=== PATIENT | female | born 1985 | race Caucasian/White ===

== ENCOUNTER 2019-12-22 09:36 | Outpatient (CLI) | payer MEDICAID | END 2019-12-22 09:37 | disposition home or self-care (01) | LOC: LAB 09:36 | PROVIDERS: ATTEND Physician Assistant Medical | DX: Z01.812 Encounter for preprocedural laboratory examination (principal); Z20.828 Contact with and (suspected) exposure to other viral communicable diseases ==

== ENCOUNTER 2020-06-24 10:32 | Emergency (ER) | payer MEDICAID ==
--- OUTSIDE RECORDS SUMMARY | 2020-06-24 11:20 | EXTERNAL MEDICAL SUMMARY RPT | Continuity of Care Document ---
:1985 Demographics Phone Unavailable Preferred Language Unknown Marital Status Unknown Cheondoism Affiliation Unknown Race Unknown Ethnic Group Unknown Author Organization [place] Address [address] [id number] Phone Social History date description facility [id number]
[2020-06-24 11:25] LABS: BASOPHILS % (AUTO) 0.8 %; EOSINOPHILS # (AUTO) 0.1 10^3/uL (0.0-0.7); EOSINOPHILS % (AUTO) 1.2 %; HCT - HEMATOCRIT 41.3 % (37.0-47.0); HGB - HEMOGLOBIN 13.5 g/dL (12.0-16.0); LYMPHOCYTES # (AUTO) 1.8 10^3/uL (1.5-3.5); LYMPHOCYTES % (AUTO) 34.8 %; MEAN CORPUSCULAR HEMOGLOBIN 30.5 pg (27.0-31.0); MEAN CORPUSCULAR HGB CONC 32.7 g/dL (32.0-36.0); MEAN CORPUSCULAR VOLUME 93.4 fL (81.0-99.0); MEAN PLATELET VOLUME 8.9 fL (7.9-10.8); MONOCYTES # (AUTO) 0.4 10^3/uL (0.0-1.0); MONOCYTES % (AUTO) 7.1 %; NEUTROPHILS # (AUTO) 2.8 10^3/uL (1.5-6.6); NEUTROPHILS % (AUTO) 55.9 %; PLT - PLATELET COUNT 252 10^3/uL (130-450); RED BLOOD COUNT 4.42 10^6/uL (4.20-5.40); RED CELL DISTRIBUTION WIDTH 14.7 % (12.0-15.0); WHITE BLOOD COUNT 5.1 x10^3/uL (4.8-10.8)
[2020-06-24 11:38] LABS: ALBUMIN 4.8 g/dL (3.2-5.5); ALBUMIN/GLOBULIN RATIO 1.8 (1.0-2.2); BILIRUBIN,TOTAL 0.6 mg/dL (0.2-1.0); CALCIUM 9.6 mg/dL (8.5-10.3); CREATININE 0.7 mg/dL (0.4-1.0); POTASSIUM 4.1 mmol/L (3.5-5.0); TOTAL PROTEIN 7.5 g/dL (6.7-8.2)
[2020-06-24 12:24] LABS: BILIRUBIN,URINE NEGATIVE (NEGATIVE); GLUCOSE, URINE (UA) NEGATIVE (NEGATIVE); KETONES,URINE (UA) NEGATIVE (NEGATIVE); LEUKOCYTE ESTERASE, URINE NEGATIVE (NEGATIVE); NITRITE,URINE NEGATIVE (NEGATIVE); OCCULT BLOOD,URINE SMALL (NEGATIVE); PROTEIN,URINE NEGATIVE (NEGATIVE); UROBILINOGEN,URINE 0.2 (NORMAL) E.U./dL (NORMAL)
[2020-06-24 12:31] LABS: BACTERIA,URINE Rare /HPF (None Seen); CLARITY,URINE CLEAR (CLEAR); HCG UR QUAL NEGATIVE; RBC,URINE 0-5 /HPF (0-5); SQUAMOUS EPITHELIAL CELL,UR RARE Squamous (<= Few); WBC,URINE 0-3 /HPF (0-5)
[2020-06-24] MEDS ORDERED: ACETAMINOPHEN 325 MG TABLET PO STA (15:49)
[2020-06-24 16:19] VITALS: BP 121/81
--- NOTE | 2020-06-24 16:37 | ED Physician Documentation ---
History of Present Illness - Stated complaint Stated Complaint: ABD PX/NAUSEA - Chief complaint Chief Complaint: Abd Pain - History obtained from History obtained from: Patient - Additonal information Additional information: 34-year-old woman with past medical history of left dermoid cyst, past surgical history of right oophorectomy 2009, presents with cramping right lower quadrant pain, gradual in onset and constant over the past 4 weeks. Patient states that she has had nausea associated with this the pain is currently a 6 out of 10, nonradiating. LMP 06/17. Patient does have irregular bowel movements but denies fevers, urinary symptoms, diarrhea or vomiting. She had an elective cosmetic labioplasty 6 weeks ago in [place] and has had no issues from this. 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: Ovarian cysts - Past Surgical History Past Surgical History: Yes /DIE PRESSER: section, Oophrectomy HEENT: Myringotomy (tubes) - Present Medications Home Medications: Ambulatory Orders Medication Instructions Recorded Confirmed Meloxicam [Mobic] 7.5 mg PO DAILY 06/24/20 06/24/20 - Allergies Allergies/Adverse Reactions: Allergies Allergy/AdvReac Type Severity Reaction Status Date / Time No Known Drug Allergies Allergy Verified 06/24/20 11:11 - Social History Does the pt smoke?: No Smoking Status: Never smoker Does the pt drink ETOH?: Yes Does the pt have substance abuse?: No - Immunizations Immunizations are current?: Yes - POLST Patient has POLST: No Results - Vitals Vitals: Vital Signs - 24 hr 06/24/20 06/24/20 06/24/20 11:09 12:23 14:21 Temperature 36.7 C Heart Rate 77 72 86 Respiratory 16 16 16 Rate Blood Pressure 125/81 H 118/82 H 102/65 O2 Saturation 97 99 98 06/24/20 06/24/20 14:22 16:19 Temperature Heart Rate 74 80 Respiratory 16 Rate Blood Pressure 109/77 121/81 H O2 Saturation 100 99 Oxygen O2 Source Room air - Labs Labs: Laboratory Tests 06/24/20 06/24/20 06/24/20 11:20 11:20 12:10 WBC 5.1 RBC 4.42 Hgb 13.5 Hct 41.3 MCV 93.4 MCH 30.5 MCHC 32.7 RDW 14.7 Plt Count 252 MPV 8.9 Neut # (Auto) 2.8 Lymph # (Auto) 1.8 [place] # (Auto) 0.4 Eos # (Auto) 0.1 Baso # (Auto) 0.0 Absolute Nucleated RBC 0.00 Nucleated RBC % 0.0 Sodium 145 Potassium 4.1 Chloride 105 Carbon Dioxide 28 Anion Gap 12.0 BUN 15 Creatinine 0.7 Estimated GFR (MDRD) 96 Glucose 104 H Calcium 9.6 Total Bilirubin 0.6 AST 26 ALT 22 Alkaline Phosphatase 36 L Total Protein 7.5 Albumin 4.8 Globulin 2.7 Albumin/Globulin Ratio 1.8 Lipase 29 Urine Color YELLOW Urine Clarity CLEAR Urine pH 6.0 Ur Specific [place] 1.020 Urine Protein NEGATIVE Urine Glucose (UA) NEGATIVE Urine Ketones NEGATIVE Urine Occult Blood SMALL H Urine Nitrite NEGATIVE Urine Bilirubin NEGATIVE Urine Urobilinogen 0.2 (NORMAL) Ur Leukocyte Esterase NEGATIVE Urine RBC 0-5 Urine WBC 0-3 Ur Squamous Epith Cells RARE Squamous Urine Bacteria Rare Ur Microscopic Review INDICATED Urine Culture Comments NOT INDICATED Urine HCG, Qual NEGATIVE PD MEDICAL DECISION MAKING - ED course ED course: 34-year-old woman presents with right lower quadrant pain for the past 4 weeks that has been progressively worsening slowly over that time.. Lab work and ultrasound testing noncontributory except for L ovarian hemorrhagic cyst, which is not at the site of pain. Return precautions given. Patient will follow up with OB. Departure - Departure Disposition: 01 Home, Self Care Clinical Impression: Abdominal pain, Left ovarian cyst Condition: Good Instructions: ED Abdominal Pain Unkn Cause Follow-Up: Hoa Davila MD [Provider Admit Priv/Credential] - Comments: You were seen in the emergency department for right lower abdominal pain. It appears to have a cyst on your left ovary and absence of the right ovary. Your work-up otherwise did not show any dangerous or emergent causes for your condition. Please follow-up with NEWSPAPER PHOTOGRAPHER. Return to the emergency department if you develop any new or worsening symptoms or have other concerns.
--- NOTE | 2020-06-24 17:24 | Ultrasound Report ---
PROCEDURE: Pelvic w/Doppler Complete INDICATIONS: RLQ pain X 4 weeks TECHNIQUE: Real-time scanning was performed of the pelvic organs, with image documentation. Additional endovagi nal scanning was necessary due to incomplete visualization of the adnexal and endometrial structures by transabdominal scanning. COMPARISON: 07/11/2012 FINDINGS: No pathologic free abdominal or pelvic fluid. Uterus: Uterus is normal in size at 9.7 x 5.4 x 6.2 cm. The endometrium measures 5 mm in combined t hickness. Low echogenicity uterine lesions are seen, which are attributed to fibroids and which measure as foll ows: Right anterior uterus, intramural, 0.8 x 1 x 1.9 cm, prior 1.3 x 0.9 x 1.6 cm Mid anterior uterus, intramural, 3 x 1.9 x 3 cm, prior 1.5 x 1.5 x 2.6 m. Ovaries: The right ovary surgically absent. The left ovary measures 5.2 x 3.4 x 4.3 cm and demonstra delmi a complex cyst that measures 2.4 x 2.3 x 2 cm. No solid masses are seen involving the left ovary. More than 12 follicles are seen involving the left ovary. A normal-appearing waveform is confirmed t o the left ovary. No adnexal masses are seen on either side. IMPRESSION: Likely hemorrhagic cyst of the left ovary. If clinically appropriate, please consider a short-term f ollow-up ultrasound in 6 weeks to ensure resolution/improvement. More than 12 follicles are seen involving the left ovary. Please consider polycystic ovarian syndrome . Uterine fibroids again seen. The previously seen apparent dermoid of the left ovary is not seen on the current study. Status post right oophorectomy. Note: Concordant preliminary findings given by the broke beater machine operator upon the completion of the examination to Dr. Mcghee at 4:50 PM on 06/24/2020. Reviewed by: Paulo Tee MD on 06/24/2020 4:23 PM DONNA Approved by: Paulo Tee MD on 06/24/2020 4:23 PM DONNA Station ID: [id number]
== END 2020-06-24 17:26 | disposition home or self-care (01) ==
LOC: ED 10:32
DX: R10.31 Right lower quadrant pain (principal); R11.0 Nausea; N83.202 Unspecified ovarian cyst, left side; Z90.721 Acquired absence of ovaries, unilateral
CPT/HCPCS: 36415; 76856; 80053; 81001; 81025; 83690; 85025; 93975; 99284; A9270; 81003; 87086

== ENCOUNTER 2021-03-11 16:27 | Emergency (ER) | payer OTHER, MEDICAID ==
[2021-03-11 16:36] VITALS: BP 141/88
--- NOTE | 2021-03-11 16:59 | ED Physician Documentation ---
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 She was cleaning a perirectal abscess that was draining when she felt a slight burning on her left thumb. She noted that her glove had broken and she had a small paper cut. She immediately washed the wound with soap and water. Was sent here for postexposure lab draw. 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 - Past Surgical History Past Surgical History: Yes /IMPORT/EXPORT ANALYST: section, Oophrectomy HEENT: Myringotomy (tubes) - Present Medications Home Medications: Ambulatory Orders Medication Instructions Recorded Confirmed No Known Home Medications 03/11/21 03/11/21 - Allergies Allergies/Adverse Reactions: Allergies Allergy/AdvReac Type Severity Reaction Status Date / Time No Known Drug Allergies Allergy Verified 06/24/20 11:11 - Social History Does the pt smoke?: No Smoking Status: Never smoker Does the pt drink ETOH?: Yes Does the pt have substance abuse?: No - Immunizations Immunizations are current?: Yes - POLST Patient has POLST: No PD ED PE NORMAL - Vitals Vital signs reviewed: Yes - General General: Alert and oriented X 3, No acute distress - HEENT HEENT: Moist mucous membranes - Neck Neck: Supple, no meningeal sign - Cardiac Cardiac: RRR - Respiratory Respiratory: No respiratory distress, Clear bilaterally - Derm Derm: Warm and dry - Extremities Extremities: Other (Small superficial laceration to the pad of the left thumb. About 0.2 cm.) - Neuro Neuro: Alert and oriented X 3 Results - Vitals Vitals: Vital Signs - 24 hr 03/11/21 03/11/21 16:32 16:40 Temperature 36.8 C 36.8 C Heart Rate 76 76 Respiratory 16 16 Rate Blood Pressure 141/88 H 141/88 H O2 Saturation 100 100 Oxygen O2 Source Room air - Labs Labs: Laboratory Tests 03/11/21 03/11/21 03/11/21 16:56 16:56 17:10 WBC 6.2 RBC 4.32 Hgb 13.4 Hct 39.5 MCV 91.4 MCH 31.0 MCHC 33.9 RDW 12.8 Plt Count 282 MPV 8.6 Sodium 139 Potassium 4.0 Chloride 102 Carbon Dioxide 26 Anion Gap 11.0 BUN 21 H Creatinine 0.7 Estimated GFR (MDRD) 96 Glucose 93 Calcium 10.0 Total Bilirubin 0.6 AST 18 ALT 19 Alkaline Phosphatase 27 L Total Protein 7.9 Albumin 4.8 Globulin 3.1 Albumin/Globulin Ratio 1.5 Urine Color YELLOW Urine Clarity HAZY Urine pH 7.0 Ur Specific [place] 1.015 Urine Protein NEGATIVE Urine Glucose (UA) NEGATIVE Urine Ketones NEGATIVE Urine Occult Blood SMALL H Urine Nitrite NEGATIVE Urine Bilirubin NEGATIVE Urine Urobilinogen 0.2 (NORMAL) Ur Leukocyte Esterase NEGATIVE Urine RBC 6-10 H Urine WBC 0-3 Ur Squamous Epith Cells MANY Squamous H Urine Bacteria Few Ur Microscopic Review INDICATED Urine Culture Comments NOT INDICATED PD MEDICAL DECISION MAKING - ED course Complexity details: considered differential, d/w patient ED course: This would be considered a very low risk exposure. Patient declines HIV prophylaxis. Laboratory testing was drawn. She request that the results be sent to the shelter provider for follow-up. Patient counseled regarding signs and symptoms for which I believe and urgent re-evaluation would be necessary. Patient with good understanding of and agreement to plan and is comfortable going home at this time This document was made in part using voice recognition software. While efforts are made to proofread this document, sound alike and grammatical errors may occur. Departure - Departure Disposition: 01 Home, Self Care Clinical Impression: Exposure to body fluid Condition: Good Instructions: ED Body Fluid Exp HC Worker Follow-Up: WARREN BOCANEGRA ARNP [Physician No Access] - Within 1 week Comments: You can follow-up with your test results with Warren Bocanegra from the shelter. Return if you worsen. Discharge Date/Time: 03/11/21 17:22
[2021-03-11 17:05] LABS: HCT - HEMATOCRIT 39.5 % (37.0-47.0); HGB - HEMOGLOBIN 13.4 g/dL (12.0-16.0); MEAN CORPUSCULAR HGB CONC 33.9 g/dL (32.0-36.0); MEAN CORPUSCULAR VOLUME 91.4 fL (81.0-99.0); MEAN PLATELET VOLUME 8.6 fL (7.9-10.8); RED BLOOD COUNT 4.32 10^6/uL (4.20-5.40); RED CELL DISTRIBUTION WIDTH 12.8 % (12.0-15.0); WHITE BLOOD COUNT 6.2 x10^3/uL (4.8-10.8)
[2021-03-11 17:16] LABS: ALBUMIN 4.8 g/dL (3.2-5.5); ALBUMIN/GLOBULIN RATIO 1.5 (1.0-2.2); BILIRUBIN,TOTAL 0.6 mg/dL (0.2-1.0); CREATININE 0.7 mg/dL (0.4-1.0); TOTAL PROTEIN 7.9 g/dL (6.7-8.2)
[2021-03-11 17:20] LABS: BILIRUBIN,URINE NEGATIVE (NEGATIVE); GLUCOSE, URINE (UA) NEGATIVE (NEGATIVE); KETONES,URINE (UA) NEGATIVE (NEGATIVE); LEUKOCYTE ESTERASE, URINE NEGATIVE (NEGATIVE); NITRITE,URINE NEGATIVE (NEGATIVE); OCCULT BLOOD,URINE SMALL (NEGATIVE); PROTEIN,URINE NEGATIVE (NEGATIVE); UROBILINOGEN,URINE 0.2 (NORMAL) E.U./dL (NORMAL)
[2021-03-11 17:22] LABS: CLARITY,URINE HAZY (CLEAR)
[2021-03-11 17:28] LABS: BACTERIA,URINE Few /HPF (None Seen); SQUAMOUS EPITHELIAL CELL,UR MANY Squamous (<= Few); WBC,URINE 0-3 /HPF (0-5)
[2021-03-13 10:37] LABS: HEPATITIS C ANTIBODY NON-REACTIVE (NON-REACTIVE)
[2021-03-13 13:46] LABS: HIV AG/AB 4TH GEN NON-REACTIVE (NON-REACTIVE)
== END 2021-03-11 17:22 | disposition home or self-care (01) ==
LOC: ED 16:27
DX: Z77.21 Contact with and (suspected) exposure to potentially hazardous body fluids (principal); S61.012A Laceration without foreign body of left thumb without damage to nail, initial encounter; X58.XXXA Exposure to other specified factors, initial encounter; Y93.F9 Activity, other caregiving; Y92.149 Unspecified place in prison as the place of occurrence of the external cause; Y99.0 Civilian activity done for income or pay
CPT/HCPCS: 36415; 80053; 81001; 81003; 85027; 86317; 86803; 87086; 87389; 99281; 99283

== ENCOUNTER 2021-06-24 12:42 | Emergency (ER) | payer MEDICAID, OTHER ==
--- OUTSIDE RECORDS SUMMARY | 2021-06-24 12:49 | EXTERNAL MEDICAL SUMMARY RPT | Continuity of Care Document ---
:1985 Author Organization [place] Address [address] [place] [address] Phone Care Team Providers Name Role Phone Horras Unavailable Unavailable Allergies No information. Encounters No information. Medications date description facility [id number] meloxicam 7.5 MG Oral Tablet [facility]ital [id number] gabapentin 100 MG Oral Capsule [facility] Problems Procedures date description facility [id number] [facility] Results No information.
--- NOTE | 2021-06-24 13:00 | ED Physician Documentation ---
PD HPI ABD PAIN - Stated complaint Stated Complaint: FEMALE - Chief complaint Chief Complaint: Abd Pain - History obtained from History obtained from: Patient - Additional information Additional information: with history of 1 miscarriage. LMP of May 21 putting her at 4 weeks 6 days today. Last 2 days she has had some brown spotting and cramping. No severe pain. No fevers. 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 - Past Surgical History Past Surgical History: Yes /BICYCLE II ASSEMBLER: section, Oophrectomy HEENT: Myringotomy (tubes) - Present Medications Home Medications: Ambulatory Orders Medication Instructions Recorded Confirmed Pnv No.95/Ferrous Fum/Folic AC 1 tab PO DAILY 06/24/21 06/24/21 [ [place]] - Allergies Allergies/Adverse Reactions: Allergies Allergy/AdvReac Type Severity Reaction Status Date / Time No Known Drug Allergies Allergy Verified 06/24/21 12:47 - Social History Does the pt smoke?: No Smoking Status: Never smoker Does the pt drink ETOH?: Yes Does the pt have substance abuse?: No - Immunizations Immunizations are current?: Yes - POLST Patient has POLST: No PD ED PE NORMAL - Vitals Vital signs reviewed: Yes - General General: Alert and oriented X 3, No acute distress - Abdomen Abdomen: Normal bowel sounds, Soft, Non tender - Female Female : Other (I am unable to visualize an IUP on bedside transabdominal ultrasound.) - Neuro Neuro: Alert and oriented X 3, Normal speech Results - Vitals Vitals: Vital Signs - 24 hr 06/24/21 12:45 Temperature 37.1 C Heart Rate 78 Respiratory 16 Rate Blood Pressure 138/74 H O2 Saturation 100 Oxygen O2 Source Room air - Labs Labs: Laboratory Tests 06/24/21 06/24/21 06/24/21 12:50 13:06 13:06 WBC 7.1 RBC 4.13 L Hgb 12.6 Hct 37.4 MCV 90.6 MCH 30.5 MCHC 33.7 RDW 13.0 Plt Count 293 MPV 9.0 Neut # (Auto) 4.3 Lymph # (Auto) 2.0 [place] # (Auto) 0.7 Eos # (Auto) 0.1 Baso # (Auto) 0.1 Absolute Nucleated RBC 0.00 Nucleated RBC % 0.0 Sodium 135 Potassium 3.7 Chloride 101 Carbon Dioxide 21 Anion Gap 13.0 BUN 13 Creatinine 0.7 Estimated GFR (MDRD) 96 Glucose 95 Calcium 9.2 HCG, Quant Urine Color YELLOW Urine Clarity CLEAR Urine pH 6.0 Ur Specific [place] <=1.005 Urine Protein NEGATIVE Urine Glucose (UA) NEGATIVE Urine Ketones NEGATIVE Urine Occult Blood TRACE-INTA Urine Nitrite NEGATIVE Urine Bilirubin NEGATIVE Urine Urobilinogen 0.2 (NORMAL) Ur Leukocyte Esterase NEGATIVE Ur Microscopic Review NOT INDICATED Urine Culture Comments NOT INDICATED 06/24/21 13:06 WBC RBC Hgb Hct MCV MCH MCHC RDW Plt Count MPV Neut # (Auto) Lymph # (Auto) [place] # (Auto) Eos # (Auto) Baso # (Auto) Absolute Nucleated RBC Nucleated RBC % Sodium Potassium Chloride Carbon Dioxide Anion Gap BUN Creatinine Estimated GFR (MDRD) Glucose Calcium HCG, Quant 1999.00 Urine Color Urine Clarity Urine pH Ur Specific [place] Urine Protein Urine Glucose (UA) Urine Ketones Urine Occult Blood Urine Nitrite Urine Bilirubin Urine Urobilinogen Ur Leukocyte Esterase Ur Microscopic Review Urine Culture Comments PD MEDICAL DECISION MAKING - ED course Complexity details: reviewed old records (Per previous records, blood type is a positive) ED course: 35-year-old G4, P2 presents at under 5 weeks gestation with cramping and bleeding. Pain is not severe. Ultrasound showing no clear IUP and a fibroid uterus without free fluid. Beta-hCG is 1999. I discussed the case by phone with Dr. Fernando Avery, on-call SOFTWARE TOOLS ENGINEER who recommends 48-hour repeat beta-hCG and 7-day ultrasound with close return precautions. Departure - Departure Disposition: 01 Home, Self Care Clinical Impression: of unknown anatomic location Condition: Good Record reviewed to determine appropriate education?: Yes Instructions: ED Miscarriage Poss Follow-Up: Fernando Avery MD [Provider Admit Priv/Credential] - Comments: As discussed, we are unable to definitively identify an intrauterine today. So it is hard to give you any prognosis about how the is progressing or the likeliness that you will be able to carry to term. You will need to get a repeat beta hCG blood level in 2 days, early afternoon Friday. And a repeat ultrasound in a week to give better prognosis. I did discuss her case by phone today with Dr. Fernando Avery, he is our on-call SOFTWARE TOOLS ENGINEER. You should call his office tomorrow morning and they should be arranging for the follow-up labs and ultrasound. Return anytime if worsening.
[2021-06-24 13:27] LABS: BASOPHILS # (AUTO) 0.1 10^3/uL (0.0-0.1); BASOPHILS % (AUTO) 0.7 %; EOSINOPHILS # (AUTO) 0.1 10^3/uL (0.0-0.7); EOSINOPHILS % (AUTO) 1.7 %; HCT - HEMATOCRIT 37.4 % (37.0-47.0); HGB - HEMOGLOBIN 12.6 g/dL (12.0-16.0); LYMPHOCYTES % (AUTO) 28.1 %; MEAN CORPUSCULAR HEMOGLOBIN 30.5 pg (27.0-31.0); MEAN CORPUSCULAR HGB CONC 33.7 g/dL (32.0-36.0); MEAN CORPUSCULAR VOLUME 90.6 fL (81.0-99.0); MONOCYTES # (AUTO) 0.7 10^3/uL (0.0-1.0); MONOCYTES % (AUTO) 9.3 %; NEUTROPHILS # (AUTO) 4.3 10^3/uL (1.5-6.6); NEUTROPHILS % (AUTO) 59.8 %; PLT - PLATELET COUNT 293 10^3/uL (130-450); RED BLOOD COUNT 4.13 10^6/uL (4.20-5.40); WHITE BLOOD COUNT 7.1 x10^3/uL (4.8-10.8)
[2021-06-24 13:28] LABS: BILIRUBIN,URINE NEGATIVE (NEGATIVE); GLUCOSE, URINE (UA) NEGATIVE (NEGATIVE); KETONES,URINE (UA) NEGATIVE (NEGATIVE); LEUKOCYTE ESTERASE, URINE NEGATIVE (NEGATIVE); NITRITE,URINE NEGATIVE (NEGATIVE); OCCULT BLOOD,URINE TRACE-INTA (NEGATIVE); PROTEIN,URINE NEGATIVE (NEGATIVE); UROBILINOGEN,URINE 0.2 (NORMAL) E.U./dL (NORMAL)
[2021-06-24 13:29] LABS: CLARITY,URINE CLEAR (CLEAR)
[2021-06-24 13:37] LABS: CALCIUM 9.2 mg/dL (8.5-10.3); CREATININE 0.7 mg/dL (0.4-1.0); POTASSIUM 3.7 mmol/L (3.5-5.0)
[2021-06-24 14:39] VITALS: BP 126/86
--- NOTE | 2021-06-24 15:18 | Ultrasound Report ---
PROCEDURE: OB First Trimester w/TV INDICATIONS: 5w preg VB/cramp OUTSIDE/PRIOR DATING DATA: Last menstrual period (LMP): 05/21/2021. LMP-based estimated date of delivery (SHARMIN): 02/25/2022. TECHNIQUE: Real-time scanning was performed of the fetus and maternal pelvic organs, with image documentation. Endovaginal scanning was also performed to better visualize the fetus and maternal ovaries. COMPARISON: None FINDINGS: Normal-appearing uterus. No intrauterine gestational sac. Endometrial thickness measures 12 mm. 2 sep arate uterine fibroids noted measuring 2.6 x 3.2 cm and 1.5 x 1.8 cm anteriorly. Left-sided corpus luteum cyst measures 2 cm it. Left ovary otherwise unremarkable. Right oophorectomy . No free fluid. No adnexal mass. IMPRESSION: 1. No evidence of intrauterine . Differential include normal early , missed abortio n and nonvisualized ectopic . 2. Left corpus luteum cyst. Right oophorectomy. Reviewed by: Reagan Polo MD on 06/24/2021 2:17 PM DONNA Approved by: Reagan Polo MD on 06/24/2021 2:17 PM DONNA Station ID: [id number]
== END 2021-06-24 14:40 | disposition home or self-care (01) ==
LOC: ED 12:42
DX: O00.90 Unspecified ectopic pregnancy without intrauterine pregnancy (principal); Z3A.01 Less than 8 weeks gestation of pregnancy
CPT/HCPCS: 36415; 80048; 81001; 81003; 84702; 85025; 86900; 86901; 87086; 99282; 99284